=== PATIENT | male | born 1995 | race Two or more races ===

== ENCOUNTER 2025-08-07 10:33 | Outpatient (REF) | payer OTHER, SELFPAY ==
--- NOTE | ~2025-08-07 | XR_ITS ---
EXAMINATION: XR LUMBOSACRAL SPINE CLINICAL INFORMATION: LBP COMPARISON: None available. TECHNIQUE: 5 views of the lumbar spine, inclusive of bilateral oblique views, were obtained. FINDINGS: There is no scoliosis. There is mild straightening of the normal lordosis. There is no subluxation. Alignment is anatomic. There is no fracture, compression deformity, or suspicious bone lesion. There is a minimal disc degeneration present at L5-S1. Disc spaces are otherwise normal. Facets are normal in alignment with normal appearance. There are no pars defects. The sacrum and SI joints appear normal. Soft tissues appear normal. XR/XR lumbar spine 4V min IMPRESSION: 1. No acute bony or soft tissue abnormality. 2. Minimal disc degeneration L5-S1. Electronically signed by: Tejas Badillo MD 08/07/2025 11:24 AM EDT
--- OUTSIDE RECORDS SUMMARY | 2025-08-07 12:19 | XMS_ITS | Clinical Summary ---
Author Organization [employer] Address [address] [facility] [address] [place] [address] Care Team Providers Care Office Director Name Role Phone Stacy Garcia MD Primary Care Provider Allergies No known active allergies Medications OXcarbazepine (Trileptal) 150 MG tabletIndication s:Trigeminal neuritis,Bilater al calf pain Take 1 tablet (150 mg) by mouth 2 times daily. 60 tablet 11 07/31/2025 6 Active famotidine (Pepcid) 20 MG tabletIndication s:Gastroesophage al reflux disease without esophagitis Take 1 tablet (20 mg) by mouth 2 times daily. 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 [address] [place] [address] Stacy Garcia MD Reactive depression (Primary Dx); Recurrent sinusitis; Trigeminal neuritis; Primary hypertension; Lumbar spine pain; Bilateral calf pain; Routine screening for STI (sexually transmitted infection); Nephrolithiasis; Gastroesophageal reflux disease without esophagitis; Dietary counseling; Exercise counseling; Overweight 07/31/2025 Travel 07/30/[address] [facility] [address] [place] [address] Lizet Choudhary MA Chart Prep 07/29/2025 3:10 PM EDT Immunization [facility] [address] [place] [address] Jessy Lee RN Encounter for immunization 07/29/2025 Travel 07/27/2025 Travel 07/23/2025 Patient Outreach [facility] [address] [place] [address] Amaury Blanton MD Pre-visit Planning (Pre visit planning LVM ) from Last 3 Months Immunizations Immunization Administration Dates Next Due Influenza, seasonal, injectable, preservative fr ee 07/29/2025 Family History Medical History Relation Name Comments hypertension Brother Hypertension Father Arthritis Mother Migraines Mother systemic lupus Mother Hypothyroidism Sister Relation Name Status Comments Brother Father Mother Sister Social History Tobacco Use Types Packs/Day Years Used Date Smoking Tobacco: Unknown Smokeless Tobacco: Never Tobacco Cessation:Counseling Given: No Depression Answer Date Recorded Patient Health Questionnaire-9 Score 3 07/31/2025 Patient Health Questionnaire-9 Score 3 07/31/2025 Last PHQ-9: Questionnaire Data Not on file 1 Housing Stability Answer Date Recorded What is your housing situation today? I have rosina ulrich 07/31/[address] you li ve. Do you have problems with any of the following? None of the above 07/31/2025 Food Insecurity Answer Date Recorded Within the past 12 months, y ou worried that your food would run out before you got money to buy more: Never True 07/31/2025 Within the past 12 months,th e food you bought just didn't last and you didn't have enough money to get more: Never True Transportation Answer Date Recorded In the past 12 months, has l ack of transportation kept you from medical appts, meetings, work or from getting things needed for daily living? No 07/31/2025 Utilities Answer Date Recorded In the past 12 months, has t he electric, gas, oil or water company threatened to shut off services in your home? No 07/31/2025 Depression Answer Date Recorded Patient Health Questionnaire-2 Score 2 07/31/2025 Internet Access Answer Date Recorded Internet Access Q1 Yes 07/31/2025 Internet Access Q2 Not on file 07/31/2025 Sex and Gender Information Value Date Recorded Sex Assigned at Male 07/17/2025 9:59 AM EDT Legal Sex Male 9:02 AM EDT Gender Identity Male 07/17/2025 9:59 AM EDT Sexual Orientation Straight 07/17/2025 9: 59 AM EDT Travel History Travel Start Travel End [facility] 07/23/2025 07/27/2025 Last Filed Vital Signs Vital Sign Reading Time Taken Comments Blood Pressure 128/79 07/31/2025 1:38 PM EDT Pulse 81 07/31/2025 1:38 PM EDT Temperature - - Respiratory Rate 20 07/31/2025 1:38 PM EDT Oxygen Saturation 98% 07/31/2025 1:38 PM EDT Inhaled Oxygen Concentration - - Weight 92.1 kg (203 lb) 07/31/2025 1:38 PM EDT Height 183 cm (6' 0.05 ) 07/31/2025 1:38 PM EDT Body Mass Index 27.5 07/31/2025 1:38 PM EDT Plan of Treatment Health Maintenance Due Date Last Done Comments HIV Screening 1993 Lipid Panel 1993 Alcohol/Substance Use Screening 2005 Family Planning (PISQ) 2008 HPV Vaccines (1 - Male 3-dos e series) 2008 Hepatitis C Screening 2011 DTaP/Tdap/Td Vaccines (1 - Tdap) 2012 Hepatitis B Vaccines (1 of 3 - 19+ 3-dose series) 2012 COVID-19 Vaccine ( - 2023-2 5 season) 2025 Disability Screening 07/27/2026 07/27/2025 Depression Screening 07/31/2026 07/31/2025, 07/31/2025 SDOH Screening 07/31/2026 07/31/2025 Tobacco Screening 08/02/2026 08/02/2025 Zoster Vaccines (1 of 2) 2043 RSV Patients and Patients Aged 60 years or older (1 - 1-dose 75+ series) 2068 Influenza Vaccine Completed 07/29/2025 HIB Vaccines Aged Out No longer eligi ble based on patient's age to complete this topic Hepatitis A Vaccines Aged Out No long er eligible based on patient's age to complete this topic IPV Vaccines Aged Out No longer eligi ble based on patient's age to complete this topic Meningococcal B Vaccine Aged Out No l onger eligible based on patient's age to complete this topic Meningococcal Vaccine Aged Out No heather jeannette eligible based on patient's age to complete this topic Pneumococcal Vaccine: Pediatrics (0 to 5 Years) and At-Risk Patients (6 to 49) Years Aged Out No longer eligible b ased on patient's age to complete this topic RSV under 20 months Aged Out No longe r eligible based on patient's age to complete this topic Rotavirus Vaccines Aged Out No longer eligible based on patient's age to complete this topic Procedures Procedure Name Priority Date/Time Associated Diagnosis Comments XR LUMBAR SPINE COMPLETE 4+ VIEWS Routine 08/07/2025 11:02 AM EDT Lumbar spine pain from Last 3 Months Results * XR Lumbar Spine Complete 4+ Views (08/07/2025 11:02 AM EDT) Anatomical Region Laterality Modality Spine, L-spine Radiographic Machelle ging 08/07/2025 11:0 2 AM EDT Narrative 08/07/2025 11:27 AM EDT [place] [id number] XRay Report Signed Patient: Giuliano Randolph MR#: [id number] : 1995 Acct:[id number] Age/Sex: 30 / M ADM Date: 08/07/25 Loc: HO.HMGCLDS Attending Dr: Stacy Garcia MD Ordering Physician: Stacy Garcia MD Date of Service: 08/07/25 Procedure(s): XR lumbar spine 4V min Accession Number(s): [id number] cc: Stacy Garcia MD Reason for Exam: LBP EXAMINATION: XR LUMBOSACRAL SPINE CLINICAL INFORMATION: LBP COMPARISON: None available. TECHNIQUE: 5 views of the lumbar spine, inclusive of bilateral oblique views, were obtained. FINDINGS: There is no scoliosis. There is mild straightening of the normal lordosis. There is no subluxation. Alignment is anatomic. There is no fracture, compression deformity, or suspicious bone lesion. There is a minimal disc degeneration present at L5-S1. Disc spaces are otherwise normal. Facets are normal in alignment with normal appearance. There are no pars defects. The sacrum and SI joints appear normal. Soft tissues appear normal. XR/XR lumbar spine 4V min IMPRESSION: 1. No acute bony or soft tissue abnormality. 2. Minimal disc degeneration L5-S1. Electronically signed by: Tejas Badillo MD 08/07/2025 11:24 AM EDT RP Dictated By: Tejas Badillo MD Signed By: <Electronically signed by Tejas Badillo MD in OV> 08/07/25 1124 DD/ 1102 TD/TT: 08/07/25 1109 Laboratory Associate: Procedure Note Donotuseinterpreter, Image - 08/07/2025 [place] [address] XRay Report Signed Patient: Giuliano Randolph [facility]#: [id number] : 1995Acct:[id number] Age/Sex: 30 / MADM Date: 08/07/25 Loc: HO.HMGCLDS Attending Dr: Stacy Garcia MD Ordering Physician: Stacy Garcia MD Date of Service: 08/07/25 Procedure(s): XR lumbar spine 4V min Accession Number(s): [id number] cc: Stacy Garcia MD Reason for Exam: LBP EXAMINATION: XR LUMBOSACRAL SPINE CLINICAL INFORMATION: LBP COMPARISON: None available. TECHNIQUE: 5 views of the lumbar spine, inclusive of bilateral oblique views, were obtained. FINDINGS: There is no scoliosis. There is mild straightening of the normal lordosis. There is no subluxation. Alignment is anatomic. There is no fracture, compression deformity, or suspicious bone lesion. There is a minimal disc degeneration present at L5-S1. Disc spaces are otherwise normal. Facets are normal in alignment with normal appearance. There are no pars defects. The sacrum and SI joints appear normal. Soft tissues appear normal. XR/XR lumbar spine 4V min IMPRESSION: 1. No acute bony or soft tissue abnormality. 2. Minimal disc degeneration L5-S1. Electronically signed by: Tejas Badillo MD 08/07/2025 11:24 AM EDT RP Workstation: [id number] Dictated By: Tejas Badillo MD Signed By: <Electronically signed by Tejas Badillo MD in OV> 08/07/25 1124 DD/ 1102 TD/TT: 08/07/25 1109 Laboratory Associate: us Stacy Garcia MD IMG XR PROCEDURES Final Res ult from Last 3 Months Insurance [facility] Care Teams Office Director Relationship Specialty Start Date End Date Stacy Garcia MD [address] [place] [address] [id number] PCP - General Internal Medicine 07/31/25
--- OUTSIDE RECORDS SUMMARY | 2025-08-07 12:19 | XMS_ITS | Clinical Summary ---
Author Organization [address] [address] Phone Care Team Providers Care Grass Cutter Name Role Phone Margy Golden DPM Primary Care Provider [phone] Social History Tobacco Use Types Packs/Day Years Used Date Smoking Tobacco: Never Assessed Sex and Gender Information Value Date Recorded Sex Assigned at Not on file Legal Sex Male 12:29 PM EDT Gender Identity Not on file Sexual Orientation Not on file Plan of Treatment Health Maintenance Due Date Last Done Comments HIV screening 2006 Hepatitis C screening 2011 Tetanus adult (Td q 10,TDAP once) 2013 Influenza vaccine 05/15/2025 Covid-19 vaccine series ( - 2024- season) 2025 RSV Immunization (1 - 1-dose 75+ series) 2068 Meningococcal B Vaccine Aged Out No l onger eligible based on patient's age to complete this topic Meningococcal Vaccine Aged Out No heather jeannette eligible based on patient's age to complete this topic Pneumococcal Vaccine (2 - 49 years) Aged Out No longer eligible based on patient's age to complete this topic Care Teams Grass Cutter Relationship Specialty Start Date End Date Margy Golden DPM PCP - General Podiatry 06/01/21
[2025-08-07 13:20] LABS: MANUAL DIFF FLAG NO
[2025-08-07 13:37] LABS: Hematocrit 47.2 % (42.0-52.0); Hemoglobin 15.4 g/dl (14.0-18.0); Imm Gran Abs Auto 0.01 X10*3/uL (0.00-0.03); Imm Gran Pct Auto 0.2 % (0.0-0.4); Lymphocytes Absolute Auto 2.4 X10*3/uL (1.2-4.9); Mean Corpuscular HGB Conc 32.6 g/dl (31.0-36.0); Mean Corpuscular Hemoglobin 26.8 pg (27.0-33.0); Mean Corpuscular Volume 82.2 fL (80.0-98.0); NRBC Abs Auto 0.000 X10*3/uL (0.0-0.012); NRBC Pct Auto 0.0 /100WBC (0.0-0.2); Platelet Count 276 X10*3/uL (160-400); Red Blood Count 5.74 X10*6/uL (4.60-5.80); White Blood Count 4.1 X10*3/uL (4.8-10.8)
[2025-08-07 13:47] LABS: Appearance Urine Clear; Glucose Urine UA Negative (Negative); PH 6.5 (5.0-9.0); Specific Gravity - Urine 1.020 (1.005-1.025)
[2025-08-07 14:27] LABS: Alanine Aminotransferase 58 U/L (0-40); Albumin Level 5.2 g/dL (3.5-5.0); Alkaline Phosphatase 80 U/L (39-117); Anion Gap 7 (12-20); Aspartate Amino Transferase 36 U/L (5-37); Blood Urea Nitrogen 12 mg/dL (9-16); Calcium 10.9 mg/dL (8.4-10.2); Carbon Dioxide 35 mmol/L (22-29); Chloride 111 mmol/L (96-108); Cholesterol 218 mg/dL (<200); Estimated Glomerular Filt Rate > 60; HDL Cholesterol 42 mg/dL (>40); Potassium 4.6 mmol/L (3.3-5.1); Sodium 148 mmol/L (135-145); Total Protein 8.6 g/dL (6.5-8.0); Triglycerides 184 mg/dL (<150)
[2025-08-07 15:08] LABS: CT PCR Urine NOT DETECTED (Not Detect.); NG PCR Urine NOT DETECTED (Not Detect.)
[2025-08-08 03:54] LABS: HIV Num 1 0.06 S/CO (0.00-0.99); ~HepC Num1 0.13 S/CO (0.00-0.79); ~Hepatitis C Antibody Nonreactive (Nonreactive)
== END 2025-08-07 10:34 | disposition home or self-care (01) ==
LOC: HO.HMGCLDS 10:33
PROVIDERS: PCP Internal Medicine; Visit Provider Internal Medicine
DX: Z11.4 Encounter for screening for human immunodeficiency virus [HIV] (principal); Z20.2 Contact with and (suspected) exposure to infections with a predominantly sexual mode of transmission; Z11.59 Encounter for screening for other viral diseases; M54.50 Low back pain, unspecified; I10 Essential (primary) hypertension
CPT/HCPCS: 72110; 80053; 80061; 81003; 84443; 85025; 86592; 86803; 87389; 87491; 87591

== ENCOUNTER → 2025-08-07 11:01 | Outpatient (BNV) | payer OTHER, SELFPAY | PROVIDERS: PCP Internal Medicine; Visit Provider Radiology Diagnostic Radiology | DX: M54.50 Low back pain, unspecified (principal) | CPT/HCPCS: 72110 ==

== ENCOUNTER 2025-08-11 12:52 | Outpatient (REF) | payer OTHER, SELFPAY ==
--- OUTSIDE RECORDS SUMMARY | 2025-08-11 16:16 | XMS_ITS | Encounter Summary ---
Author Organization [employer] Address [address] [facility] 7 [place] [address] Care Team Providers Care Stem Teacher Name Role Phone Stacy Garcia MD Primary Care Provider Reason for Visit * Reason Onset Date Comments Results 08/07/2025 Encounter Details Date Type Department Care Team ([facility] Contact Info) Description 08/07/2025 Telephone [facility] [address] [place] [address] Stacy Garcia MD [address] [place] [address] Results Social History Tobacco Use Types Packs/Day Years Used Date Smoking Tobacco: Unknown Smokeless Tobacco: Never Depression Answer Date Recorded Patient Health Questionnaire-9 [...] EDT Travel History Travel Start Travel End [facility] 07/23/2025 07/27/2025 documented as of this encounter Miscellaneous Notes * Telephone Encounter - Donna Arias RN - 08/07/2025 4:22 PM EDT Per PCP: Please call Dr Garcia ( 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 repeat CMP Sunday. TC to pt. Advised pt of results and recommendations listed above. Pt requesting if physical therapyreferral could be made as mentioned in previous appointment and be sent to [facility] physical therapy in [place]. Pt is also requesting if radiology testing can be done at [facility] due to proximity of hospital to work place. Advised will reach out to referrals department to see if referral can be changed location. Pt verbalized understanding and agreement with plan. documented in this encounter Plan of Treatment Not on file documented as of this encounter Visit Diagnoses Not on filedocumented in this encounter Additional Health Concerns Assessment Noted Time PHQ-9 Depression Total Score: 3 07/31/20 25 2:11 PM EDT documented as of this encounter Care Teams Stem Teacher Relationship Specialty Start Date End Date Stacy Garcia MD [address] [place] [id number] PCP - General Internal Medicine 07/31/25 documented as of this encounter
--- OUTSIDE RECORDS SUMMARY | 2025-08-11 16:16 | XMS_ITS | Clinical Summary ---
Author Organization [address] [address] Phone Care Team Providers Care Wash Oil Pump Operator Helper Name Role Phone Margy Golden DPM Primary Care Provider Social History Tobacco Use Types Packs/Day Years [...] age to complete this topic Care Teams Wash Oil Pump Operator Helper Relationship Specialty Start Date End Date Margy Golden DPM PCP - General Podiatry 06/01/21
--- OUTSIDE RECORDS SUMMARY | 2025-08-11 16:16 | XMS_ITS | Encounter Summary ---
Author Organization [employer] Address [address] [facility] 7 [place] [address] Care Team Providers Care Mobile Disc Jockey Name Role Phone Stacy Garcia MD Primary Care Provider [phone] Reason for Visit * Reason Onset Date Comments Referral 08/07/2025 Encounter Details Date Type Department Care Team ([facility] st Contact Info) Description 08/07/2025 Telephone [facility] [address] [place] [address] Stacy Garcia MD [address] [place] [address] Referral Social History Tobacco Use Types Packs/Day Years [...] EDT Travel History Travel Start Travel End [facility] 07/23/2025 07/27/2025 documented as of this encounter Miscellaneous Notes * Telephone Encounter - Mario Alberto Fletcher - 08/07/2025 3:11 PM EDT Tc from pt requesting a referral for physical therapy Contact pt at [phone] documented in this encounter Plan of Treatment Not on file documented as of this encounter Visit Diagnoses Not on filedocumented in this encounter Additional Health Concerns Assessment Noted Time PHQ-9 Depression Total Score: 3 07/31/20 2:11 PM EDT documented as of this encounter Care Teams Mobile Disc Jockey Relationship Specialty Start Date End Date Stacy Garcia MD [address] [place] [id number] PCP - General Internal Medicine 07/31/25 documented as of this encounter
--- OUTSIDE RECORDS SUMMARY | 2025-08-11 16:16 | XMS_ITS | Encounter Summary ---
Author Organization [employer] Address [address] [place] [id number] Care Team Providers Care Medical Sonographer Name Role Phone Stacy Garcia MD Primary Care Provider Reason for Referral * Consultation (Routine) - Closed Specialty Diagnoses / Procedures Referred By Contac t Referred To Contact Physical Therapy Diagnoses Lumbar spine pain Stacy Garcia MD [address] [place] [address] Phone: tel: fax: AT Physical Therapy - [address] [address] Phone: tel: fax: Referral ID Status Reason Start Date Expiration Date V isits Requested Visits Authorized [id number] Closed Specialty Services Required 08/07/2025 08/07/2026 1 1 Encounter Details Date Type Department Care Team (Late st Contact Info) Description 08/07/2025 Orders Only [facility] [address] [place], [place] [phone] Stacy Garcia MD [address] [place] [address] Transaminitis (Primary Dx); Hypernatremia; Lumbar spine pain Social History Tobacco Use Types Packs/Day Years [...] EDT Travel History Travel Start Travel End [facility] 07/23/2025 07/27/2025 documented as of this encounter Plan of Treatment Scheduled Orders Name Type Priority Associated Diagnoses Orde r Schedule Comprehensive Metabolic Panel Lab Routine Hypernatremia Expected: 08/07/2025 (Approximate), Expires: 08/07/2026 Scheduled Referrals Name Type Priority Associated Diagnoses Orde r Schedule Referral to Physical Therapy Outpatient Referral Routine Lumbar spine pain Expected: 08/07/2025 (Approximate), Expires: 08/07/2026 documented as of this encounter Visit Diagnoses Diagnosis Transaminitis- Primary Nonspecific elevation of levels of transaminase or lactic acid dehydrogenase (LDH) Hypernatremia Hyperosmolality and/or hypernatremia Lumbar spine pain documented in this encounter Additional Health Concerns Assessment Noted Time PHQ-9 Depression Total Score: 3 07/31/20 2:11 PM EDT documented as of this encounter Care Teams Medical Sonographer Relationship Specialty Start Date End Date Stacy Garcia MD [address] [place] [id number] PCP - General Internal Medicine 07/31/25 documented as of this encounter
--- OUTSIDE RECORDS SUMMARY | 2025-08-11 16:16 | XMS_ITS | Clinical Summary ---
Author Organization [employer] Address [address] [facility] 7[address] [place] [address] Care Team Providers Care Document Processing Specialist Name Role Phone Stacy Garcia MD Primary [...] Encounters Date Type Department Care Team Description 08/08/2025 Results Follow-Up [facility] [address] [place] [address] Janelle Ramirez RN CBC auto differential, Comprehensive Metabolic Panel, Lipid Panel, Standard, Additional followed-up results: 3 08/07/2025 Telephone [facility] [address] [place] [address] Stacy Garcia MD Results 08/07/2025 Orders Only [facility] [address] [place] [address] Stacy Garcia MD Transaminitis (Primary Dx); Hypernatremia; Lumbar spine pain 08/07/2025 Telephone [facility] [address] [place] [address] Stacy Garcia MD Referral 08/07/2025 Telephone [facility] [address] [place] [address] Stacy Garcia MD Referral 07/31/2025 1:30 PM EDT Office Visit [facility] [address] [place] [address] Stacy Garcia MD Reactive depression (Primary Dx); Recurrent sinusitis; Trigeminal neuritis; Primary hypertension; Lumbar spine pain; Bilateral calf pain; Routine screening for STI (sexually transmitted infection); Nephrolithiasis; Gastroesophageal reflux disease without esophagitis; Dietary counseling; Exercise counseling; Overweight 07/31/2025 Travel 07/30/2025 Telephone [facility] [address] [place] [address] Lizet Choudhary MA Chart Prep 07/29/2025 3:10 PM EDT Immunization [facility] [address] [place] [address] Jessy Lee RN Encounter for immunization 07/29/2025 Travel 07/27/2025 Travel 07/23/2025 Patient Outreach [facility] [address] [place] [address] Amaury Blanton MD Pre-visit Planning (Pre visit [...] EDT Travel History Travel Start Travel End [facility] 07/23/2025 07/27/2025 Last Filed Vital Signs [...] Health Maintenance Due Date Last Done Comments Alcohol/Substance Use Screening 2005 Family Planning (PISQ) 2008 HPV Vaccines (1 - Male 3-dos e series) 2008 DTaP/Tdap/Td Vaccines (1 - Tdap) 2012 Hepatitis B Vaccines (1 of 3 - 19+ 3-dose series) 2012 COVID-19 Vaccine (1 - 2023-2 5 season) 2025 Disability Screening 07/27/2026 07/27/2025 Depression Screening 07/31/2026 07/31/2025, 07/31/2025 SDOH Screening 07/31/2026 07/31/2025 Tobacco Screening 08/02/2026 08/02/2025 Lipid Panel 08/07/2030 08/07/2025 Zoster Vaccines (1 of 2) 2043 RSV Patients and Patients Aged 60 years or older (1 - 1-dose 75+ series) 2068 Influenza Vaccine Completed 07/29/2025 HIV Screening Completed 08/07/2025 Hepatitis C Screening Completed 08/07/2025 HIB Vaccines Aged Out No longer eligi [...] Procedure Name Priority Date/Time Associated Diagnosis Comments CHLAMYDIA/TRICHOMONAS /NEISSERIA GONORRHOEAE, PCR, URINE Routine 08/07/2025 11:18 AM EDT Routine screening for STI (sexually transmitted infection) URINALYSIS WITH REFLEX MICROSCOPIC Routine 08/07/2025 11:18 AM EDT Routine screening for STI (sexually transmitted infection) HEPATITIS C AB W/REFL TO HCV RNA, QN, PCR Routine 08/07/2025 11:18 AM EDT Routine screening for STI (sexually transmitted infection) HIV 1/2 ANTIGEN/ANTIBODY, FOURTH GENERATION W/RFL Routine 08/07/2025 11:18 AM EDT Routine screening for STI (sexually transmitted infection) TSH W/REFLEX TO FT4 Routine 08/07/2025 1 1:18 AM EDT Primary hypertension LIPID PANEL, STANDARD Routine 08/07/2025 11:18 AM EDT Primary hypertension COMPREHENSIVE METABOLIC PANEL Routine 08/07/2025 11:18 AM EDT Primary hypertension CBC WITH AUTO DIFFERENTIAL Routine 08/07/2025 11:18 AM EDT Primary hypertension XR LUMBAR SPINE COMPLETE 4+ VIEWS Routine 08/07/2025 11:02 AM EDT Lumbar spine pain from Last 3 Months Results * Chlamydia/N. Gonorrhoeae, PCR, Urine (08/07/2025 11:18 AM EDT) CT PCR, Urine NOT DETECTED Not Detect. [facility] Comment:A not detected test result does not exclude the possibilityof infection because test results can be affected byimproper specimen collection, concurrent antibiotic therapy,or the number of organisms in the specimen which may bebelow the sensitivity of the test. As with many diagnostictests, results from the Xpert CT/NG assay should beinterpreted in conjunction with other laboratory andclinical data available to the clinician.The Xpert CT/NG assay should not be used for the evaluationof suspected sexual abuse or for other medico-legalindications. Additional testing is recommended in anycircumstance when false positive or false negative resultscould lead to adverse medical, social or psychologicalconsequences. NG PCR, Urine NOT DETECTED Not Detect. [facility] Comment:A not detected test result does not exclude the possibilityof infection because test results can be affected byimproper specimen collection, concurrent antibiotic therapy,or the number of organisms in the specimen which may bebelow the sensitivity of the test. As with many diagnostictests, results from the Xpert CT/NG assay should beinterpreted in conjunction with other laboratory andclinical data available to the clinician.The Xpert CT/NG assay should not be used for the evaluationof suspected sexual abuse or for other medico-legalindications. Additional testing is recommended in anycircumstance when false positive or false negative resultscould lead to adverse medical, social or psychologicalconsequences. Urine (Urine, Random) 08/07/2025 11:18 AM EDT 08/07/2025 1:15 PM EDT us Stacy Garcia MD LAB URINE ORDERABLES Final Result Performing Organization Address [facility] Co de Phone Number [facility] [address] [place] [phone] * TSH with Reflex to Free T4 (08/07/2025 11:18 AM EDT) Pathologist [facility] [place] TSH reflex Free T4 1.01 0.32 - 4.0 uIU/mL [facility] Blood Venous blood specimen / Unknown 08/07/2025 11:18 AM EDT 08/07/2025 1:11 PM EDT us Stacy Garcia MD LAB BLOOD ORDERABLES Final Result Performing Organization Address [facility] Co de Phone Number [facility] [address] [place] [phone] * (ABNORMAL) CBC auto differential (08/07/2025 11:18 AM EDT) White Blood Count 4.1(L) 4.8 - 10.8 X10*3/uL [facility] Red Blood Count 5.74 4.60 - 5.80 X10*6/uL [facility] Hemoglobin 15.4 14.0 - 18.0 g/dl [facility] Hematocrit 47.2 42.0 - 52.0 % [facility] Mean Corpuscular Volume 82.2 80.0 - 98.0 fL [facility] Mean Corpuscular Hemoglobin 26.8(L) 27.0 - 33.0 pg [facility] Mean Corpuscular HGB Conc 32.6 31.0 - 36.0 g/dl [facility] Red Cell Distribution Width 12.3 11.0 - 16.0 % [facility] Platelet Count 276 160 - 400 X10*3/uL [facility] Mean Platelet Volume 10.7 9.4 - 12.4 fL [facility] Neutrophils Percent Auto 30.9(L) 45 - 73 % [facility] Imm Gran Pct Auto 0.2 0.0 - 0.4 % [facility] Lymphocytes Percent Auto 58.0(H) 20 - 40 % [facility] Monocytes Percent Auto 9.0 2 - 11 % [facility] Eosinophils Percent Auto 1.2 0 - 4 % [facility] Basophils Percent Auto 0.7 0 - 2 % [facility] NRBC Pct Auto 0.0 0.0 - 0.2 /100WBC [facility] Neutrophils Absolute Auto 1.3(L) 2.0 - 8.3 x10*3/uL [facility] Imm Gran Abs Auto 0.01 0.00 - 0.03 X10*3/uL [facility] Lymphocytes Absolute Auto 2.4 1.2 - 4.9 X10*3/uL [facility] Monocytes Absolute Auto 0.4 0.1 - 1.2 X10*3/uL [facility] Eosinophils Absolute Auto 0.1 0.0 - 0.4 X10*3/uL [facility] Basophils Absolute Auto 0.0 0.0 - 0.2 X10*3/uL [facility] NRBC Abs Auto 0.000 0.0 - 0.012 X10*3/uL [facility] Blood Venous blood specimen / Unknown 08/07/2025 11:18 AM EDT 08/07/2025 1:11 PM EDT Stacy Garcia MD LAB BLOOD ORDERABLES Final Result Performing Organization Address [facility]/ZIP Co de Phone Number [facility] [address] [place] [phone] * Hepatitis C Antibody with Reflex to HCV, RNA, Quantitative, Real-Time PCR (08/07/2025 11:18 AM EDT) Hepatitis C Antibody Nonreactive Nonreactive [facility] Comment:Antibodies to HCV no t detected; does not exclude early acuteHCV infection. Blood Venous blood specimen / Unknown 08/07/2025 11:18 AM EDT 08/07/2025 1:11 PM EDT Stacy Garcia MD LAB BLOOD ORDERABLES Final Result Performing Organization Address [facility] Co de Phone Number [facility] [address] [place] [address] [phone] * HIV-1/2 Antigen and Antibodies, Fourth Generation, with Reflexes (08/07/2025 11:18 AM EDT) HIV AB/AG Nonreactive Nonreactive [facility] Comment:HIV-1 p24 Ag and/or HIV-1/HIV-2 Ab not detected.A test result that is nonreactive does not exclude thepossibility of exposure to or infection with HIV-1 and/orHIV-2. Nonreactive results in this assay for individualswith prior exposure to HIV-1 and/or HIV-2 may be due toantigen and antibody levels that are below the limit ofdetection of this assay.The needmade Alinity HIV Ag/Ab Combo assay result andsupplemental assay results should be interpreted inconjunction with the patient's clinical presentation,history and other laboratory results. If the results areinconsistent with clinical evidence, additional testing issuggested to confirm the result. Blood Venous blood specimen / Unknown 08/07/2025 11:18 AM EDT 08/07/2025 1:11 PM EDT us Stacy Garcia MD LAB BLOOD ORDERABLES Final Result Performing Organization Address [facility] Co de Phone Number [facility] [address] [place] [phone] * Urinalysis w/reflex microscopic (08/07/2025 11:18 AM EDT) Color Urine Yellow [facility] Appearance Urine Clear [facility] PH 6.5 5.0 - 9.0 [facility] Glucose Urine UA Negative Negative mg/dL [facility] Urine Blood Negative Negative [facility] Specific Blakely - Urine 1.020 1.005 - 1.025 [facility] Urine Protein Negative Neg-Trace mg/dL [facility] Urine Ketones Negative Negative mg/dL [facility] Nitrite Urine Negative Negative [facility] Leukocyte Esterase Urine Negative Negative [facility] Urine (Urine, Random) 08/07/2025 11:18 AM EDT 08/07/2025 1:15 PM EDT Narrative [facility] - 08/07/2025 1:48 PM EDT Urine, Clean Catch us Stacy Garcia MD LAB URINE ORDERABLES Final Result Performing Organization Address [facility] Co de Phone Number [facility] [address] [place] [phone] * (ABNORMAL) Lipid Panel, Standard (08/07/2025 11:18 AM EDT) Triglycerides 184(H) <150 mg/dL [facility] Comment:Desirable Triglyceri de: less than 150 mg/dLBorderline High Triglyceride 150-199 mg/dLHigh Triglyceride: 200-499 mg/dLVery High Triglyceride: greater than or equal to 5OO mg/dL Cholesterol 218(H) <200 mg/dL [facility] Comment:Desirable Cholestero l: less than 200 mg/dLBorderline High Cholesterol: 200-239 mg/dLHigh Cholesterol: greater than 239 mg/dL LDL Cholesterol Calculated 140(H) <100 mg/dL [facility] Comment:Desirable LDL: less than 100 mg/dLNear Optimal/Above Optimal LDL: 110- 129 mg/dLBorderline High LDL: 130-159 mg/dLHigh LDL: 160-189 mg/dLVery High LDL: greater than or equal to 190 mg/dL HDL Cholesterol 42 >40 mg/dL [facility] Comment:Desirable HDL: great er than 40 mg/dL Note: This HDL assay may give artificially low results in patients with liver disease. Blood Venous blood specimen / Unknown 08/07/2025 11:18 AM EDT 08/07/2025 1:11 PM EDT us Stacy Garcia MD LAB BLOOD ORDERABLES Final Result [facility] [address] [place] [phone] * (ABNORMAL) Comprehensive Metabolic Panel (08/07/2025 11:18 AM EDT) Sodium 148(H) 135 - 145 mmol/L [facility] Potassium 4.6 3.3 - 5.1 mmol/L [facility] Chloride 111(H) 96 - 108 mmol/L [facility] Carbon Dioxide 35(H) 22 - 29 mmol/L [facility] Anion Gap 7(L) 12 - 20 [facility] Urea Nitrogen (BUN) 12 9 - 16 mg/dL [facility] Creatinine, Serum 0.82 0.5 - 1.4 mg/dL [facility] Estimated Glomerular Filt Rate >60 [facility] Comment:Chronic Kidney Disea se: Estimated GFR < 60 mL/min/1.50g2Hnscaz Kidney Disease: Estimated GFR < 15 mL/min/1.73m2 Glucose 97 60 - 115 mg/dL [facility] Calcium 10.9(H) 8.4 - 10.2 mg/dL [facility] Bilirubin, Total 1.0 0.0 - 1.0 mg/dL [facility] Aspartate Amino Transferase 36 5 - 37 U/L [facility] Alanine Aminotransferase 58(H) 0 - 40 U/L [facility] Total Protein 8.6(H) 6.5 - 8.0 g/dL [facility] Albumin Level 5.2(H) 3.5 - 5.0 g/dL [facility] Alkaline Phosphatase 80 39 - 117 U/L [facility] Blood Venous blood specimen / Unknown 08/07/2025 11:18 AM EDT 08/07/2025 1:11 PM EDT Stacy Garcia MD LAB BLOOD ORDERABLES Final Result Performing Organization Address City/State/[facility] Co de Phone Number [facility] [address] [place] [phone] * XR Lumbar Spine Complete 4+ Views (08/07/2025 11:02 AM EDT) Anatomical Region Laterality Modality Spine, L-spine Radiographic Machelle ging 08/07/2025 11:0 2 AM EDT Narrative 08/07/2025 11:27 AM EDT [address] [address] XRay Report Signed Patient: Giuliano Randolph MR#: [id number] : 1995 Acct:[id number] Age/Sex: 30 / M ADM Date: 08/07/25 Loc: HO.HMGCLDS Attending Dr: Stacy Garcia MD Ordering Physician: Stacy Garcia MD Date of Service: 08/07/25 Procedure(s): XR lumbar spine 4V min Accession Number(s): [id number] cc: Stacy Garcia MD Reason for Exam: [...] 08/07/25 1124 DD/ 1102 TD/TT: 08/07/25 1109 [employer]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: Procedure Note Donotuseinterpreter, Image - 08/07/[address] [address] XRay Report Signed Patient: Giuliano Randolph [facility]#: [id number] : 1995Acct:[id number] Age/Sex: 30 / MADM Date: 08/07/25 Loc: HO.HMGCLDS Attending Dr: Stacy Garcia MD Ordering Physician: Stacy Garcia MD Date of Service: 08/07/25 Procedure(s): XR lumbar spine 4V min Accession Number(s): [id number] cc: Stacy Garcia MD Reason for Exam: [...] Tejas Badillo MD 08/07/2025 11:24 AM EDT Dictated By: Tejas Badillo MD Signed By: <Electronically signed by Tejas Badillo MD in OV> 08/07/25 1124 DD/ 1102 TD/TT: 08/07/25 1109 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: us Stacy Garcia MD IMG XR PROCEDURES Final Res ult from Last 3 Months Insurance [id number] [employer] Care Teams Document Processing Specialist Relationship Specialty Start Date End Date Stacy Garcia MD [address] [place] [phone] PCP - General Internal Medicine 07/31/25
--- OUTSIDE RECORDS SUMMARY | 2025-08-11 16:16 | XMS_ITS | Encounter Summary ---
Author Organization [employer] Address [address] [facility] [address] [place] [address] Care Team Providers Care Singe Machine Operator Name Role Phone Stacy Garcia MD Primary Care Provider Encounter Details Date Type Department Care Team (Latest Contact Info) Description 08/08/2025 Results Follow-Up [facility] [address] [place] [address] Janelle Ramirez RN [address] [place] [address] CBC auto differential, Comprehensive Metabolic Panel, Lipid Panel, Standard, Additional followed-up results: 3 Social History Tobacco Use Types Packs/Day Years [...] EDT Travel History Travel Start Travel End [facility] 07/23/2025 07/27/2025 documented as of this encounter Miscellaneous Notes * Telephone Encounter - Janelle Ramirez RN - 08/08/2025 9:36 AM EDT TC placed to pt to discuss the message below from from PCP, pt did not answer the phone and a message was left for pt to contact the [facility] on , will keep in box for another attempt. A my chart message was also sent ----- Message from Stacy Garcia MD sent at 08/07/2025 4:04 PM EDT ----- Please call. Elevated Sodium level w/ transaminitis. Possible dehydration. Please advise to start drinking at least 2 liters of fluids a day. I recommend to repeat the CMP Sunday or Sunday. I will discuss the rest of the work up W/ Dr Giuliano Romano on Sunday. ----- Message ----- From: Interface, Lab Results In Sent: 08/07/2025 1:37 PM EDT To: Stacy Garcia MD documented in this encounter Plan of Treatment Not on file documented as of this encounter Visit Diagnoses Not on filedocumented in this encounter Additional Health Concerns Assessment Noted Time PHQ-9 Depression Total Score: 3 07/31/20 2:11 PM EDT documented as of this encounter Care Teams Singe Machine Operator Relationship Specialty Start Date End Date Stacy Garcia MD [address] [place] [phone] PCP - General Internal Medicine 07/31/25 documented as of this encounter
--- OUTSIDE RECORDS SUMMARY | 2025-08-11 16:16 | XMS_ITS | Encounter Summary ---
Author Organization [employer] Address [address] [facility] [address] [place] [address] Care Team Providers Care Bone Char Kiln Tender Name Role Phone Stacy Garcia MD Primary Care Provider Reason for Visit * Reason Onset Date Comments Referral 08/07/2025 Encounter Details Date Type Department Care Team ([facility] st Contact Info) Description 08/07/2025 Telephone [facility] [address] [place] [address] Stacy Garcia MD [address] [place] [address] Referral Social History Tobacco Use Types Packs/Day [...] EDT Travel History Travel Start Travel End [facility] 07/23/2025 07/27/2025 documented as of this encounter Miscellaneous Notes * Telephone Encounter - Mario Alberto Fletcher - 08/07/2025 3:13 PM EDT Tc from pt requesting if both referrals that were placed on 07/31 ,be re directed to [facility] Contact pt at [phone] Cardiology fax # [phone] Radiology fax # [phone] documented in this encounter Plan of Treatment Not on file documented as of this encounter Visit Diagnoses Not on filedocumented in this encounter Additional Health Concerns Assessment Noted Time PHQ-9 Depression Total Score: 3 07/31/20 2:11 PM EDT documented as of this encounter Care Teams Bone Char Kiln Tender Relationship Specialty Start Date End Date Stacy Gacria MD [address] [place] [phone] PCP - General Internal Medicine 07/31/25 documented as of this encounter
[2025-08-11 18:36] LABS: Alanine Aminotransferase 58 U/L (0-40); Albumin Level 4.7 g/dL (3.5-5.0); Alkaline Phosphatase 70 U/L (39-117); Anion Gap 13 (12-20); Aspartate Amino Transferase 39 U/L (5-37); Blood Urea Nitrogen 11 mg/dL (9-16); Calcium 9.6 mg/dL (8.4-10.2); Carbon Dioxide 27 mmol/L (22-29); Chloride 104 mmol/L (96-108); Estimated Glomerular Filt Rate > 60; Potassium 4.1 mmol/L (3.3-5.1); Sodium 140 mmol/L (135-145); Total Protein 8.0 g/dL (6.5-8.0)
[2025-08-12 19:48] LABS: Trichomonas vag. RNA Ur Male NOT DETECTED (NOT DETECTED)
== END 2025-08-11 12:53 | disposition home or self-care (01) ==
LOC: HO.CHCLDS 12:52
PROVIDERS: Visit Provider Internal Medicine
DX: E87.0 Hyperosmolality and hypernatremia (principal); Z01.84 Encounter for antibody response examination
CPT/HCPCS: 36415; 80053; 86592; 87661